=== PATIENT | female | born 1990 | race African-American/Black ===

== ENCOUNTER 2017-07-20 07:44 | Emergency (ER) | payer OTHER ==
[~2017-07-20] VITALS: Ht 162.6 cm; Wt 99.8 kg
[~2017-07-20 07:44] MED LIST: ACYCLOVIR 200200 MG PO; ACYCLOVIR 400400 MG PO; AMOXICILLIN875 MG PO; ANUSOL-HC25 MG RECTAL; COLACE 100 MG100 MG PO; FLEXERIL PO; FLONASE 0.05%50 MCG NASAL; IBUPROFEN 600600 M1 PO; IBUPROFEN 800800 MG PO; NAPROSYN500 MG PO; NOHOMEMEDICATIONS; NORCO 5-325 TA1 EACH PO; ULTRAM 50MG TAB50 MG PO; VICODIN 5-5001 EACH PO
[2017-07-20 07:59] VITALS: BP 140/90
[2017-07-20] MEDS ORDERED: HYZAAR 100-12.1 EACH PO (08:02)
[2017-07-20 08:57] LABS: URINE BILIRUBIN NEGATIVE (Negative); URINE BLOOD 2+ (Negative); URINE CLARITY CLEAR; URINE COLOR YELLOW; URINE GLUCOSE-RANDOM* NEGATIVE (Negative); URINE KETONES NEGATIVE (Negative); URINE LEUKOCYTES 1+ (Negative); URINE NITRITE NEGATIVE (Negative); URINE PROTEIN (DIPSTICK) NEGATIVE (Negative); URINE SPECIFIC GRAVITY >= 1.030 (1.005-1.035); URINE UROBILINOGEN 0.2 E.U./dl (0.2-1.0)
[2017-07-20 09:41] LABS: CASTS None Seen /LPF (None Seen); CRYSTALS None Seen /LPF (None Seen); SQUAMOUS >10 Many /LPF (0-3); URINE RBC 3-10 Few /HPF (0-2); URINE WBC 6-15 Few /HPF (0-5)
[2017-07-20 09:44] LABS: BACTERIA 1-9 Few /HPF (None Seen)
[2017-07-20 09:45] LABS: URIC ACID CRYSTALS 0-3 Few /LPF (None Seen)
[2017-07-20] MEDS ORDERED: CIPROFLOXACIN500 M1 PO (09:49)
[2017-07-21 13:09] LABS: NEISSERIA GONORRHEA-PCR Negative (Negative)
== END 2017-07-20 09:50 | disposition home or self-care (01) ==
LOC: ER 07:44
PROVIDERS: Emergency Medicine
DX: N39.0 Urinary tract infection, site not specified (principal); G43.909 Migraine, unspecified, not intractable, without status migrainosus

== ENCOUNTER 2017-10-03 21:50 | Emergency (ER) | payer OTHER ==
[~2017-10-03] VITALS: Ht 165.1 cm; Wt 98.0 kg
[~2017-10-03 21:50] MED LIST changes: +CIPROFLOXACIN500 M1 PO; +HYZAAR 100-12.1 EACH PO
[2017-10-03 21:55] VITALS: BP 132/90
[2017-10-03] MEDS ORDERED: NOHOMEMEDICATIONS (22:11)
[2017-10-03] MEDS ORDERED: DIFLUCAN150 MG PO (22:20)
[2017-10-03] MEDS ORDERED: ACYCLOVIR 800800 MG PO (22:20)
== END 2017-10-03 22:37 | disposition home or self-care (01) ==
LOC: ER 21:50
DX: A60.00 Herpesviral infection of urogenital system, unspecified (principal); G43.909 Migraine, unspecified, not intractable, without status migrainosus; Z90.10 Acquired absence of unspecified breast and nipple

== ENCOUNTER 2018-07-08 08:05 | Emergency (ER) | payer OTHER ==
[~2018-07-08] VITALS: Ht 162.6 cm; Wt 105.7 kg
[~2018-07-08 08:05] MED LIST changes: +ACYCLOVIR 800800 MG PO; +DIFLUCAN150 MG PO
[2018-07-08 08:14] VITALS: BP 136/85
[2018-07-08] MEDS ORDERED: ZOFRAN ODT4 MG PO ×2 (09:04→09:08)
== END 2018-07-08 09:02 | disposition home or self-care (01) ==
LOC: ER 08:05
DX: N76.0 Acute vaginitis (principal); G43.909 Migraine, unspecified, not intractable, without status migrainosus; Z90.10 Acquired absence of unspecified breast and nipple

== ENCOUNTER 2020-06-17 09:12 | Emergency (ER) | payer OTHER ==
[~2020-06-17] VITALS: Ht 157.5 cm; Wt 65.8 kg
[~2020-06-17 09:12] MED LIST changes: +ZOFRAN ODT4 MG PO
[2020-06-17 10:01] LABS: ABSOLUTE NEUTROPHILS 3.3 thou/uL (1.4-8.2); EOSINOPHILS 2.9 % (0.0-3.0); HEMATOCRIT 36.3 % (37.0-47.0); HEMOGLOBIN 11.6 gm/dL (12.0-15.0); MCH 26.4 pg (26.0-34.0); MCHC 31.9 g/dL (28.0-37.0); MCV 82.9 fL (80.0-100.0); POLYS 54.1 % (36.0-66.0); RBC 4.38 mil/uL (4.20-5.00); RDW 13.9 % (10.5-14.5); WBC 6.2 thou/uL (4.0-11.0)
[2020-06-17 10:03] LABS: ANION GAP 12 mmol/L (7-16); BUN 13 mg/dL (7-18); CALCIUM 9.1 mg/dL (8.5-10.1); CHLORIDE 105 mmol/L (98-107); CO2 25 mmol/L (21-32); CREATININE 0.8 mg/dL (0.6-1.0); GLUCOSE 77 mg/dL (74-106); SODIUM 142 mmol/L (136-145)
[2020-06-17 10:09] LABS: ALBUMIN 3.8 g/dL (3.4-5.0); DIRECT BILIRUBIN < 0.1 mg/dL (<0.1-0.2); SGOT 23 U/L (15-37); SGPT 13 U/L (30-65); TOTAL BILIRUBIN 0.8 mg/dL (0.2-1.0); TOTAL PROTEIN 7.8 g/dL (6.4-8.2)
[2020-06-17 10:35] LABS: LARGE PLATELETS FEW; PLATELET COUNT 253 thou/uL (150-400)
[2020-06-17 10:44] LABS: URINE BILIRUBIN NEGATIVE (Negative); URINE BLOOD NEGATIVE (Negative); URINE CLARITY CLEAR; URINE COLOR YELLOW; URINE GLUCOSE-RANDOM* NEGATIVE (Negative); URINE KETONES NEGATIVE (Negative); URINE LEUKOCYTES-REFLEX NEGATIVE (Negative); URINE NITRITE-REFLEX NEGATIVE (Negative); URINE PROTEIN (DIPSTICK) NEGATIVE (Negative); URINE SPECIFIC GRAVITY <= 1.005 (1.005-1.035); URINE UROBILINOGEN 0.2 E.U./dl (0.2-1.0)
[2020-06-17 10:55] LABS: AMP/METHAMP Negative (Negative); BARBITURATES Negative (Negative); BENZODIAZEPINES Negative (Negative); COCAINE Negative (Negative); METHADONE Negative (Negative); OPIATES Negative (Negative); PCP Negative (Negative)
--- NOTE | 2020-06-17 11:07 | EKG ---
[address] [place] [place] [employer] [address] ELECTROCARDIOGRAM REPORT Name: WALKER STAPLES Room #: [facility] [id number] Admission: 06/17/20 Attend Phys: Discharge: Date of : 88 Report #: [id number] [facility] ED Test Date: 2020-06-17 Test Time: 09:14:24 Pat Name: WALKER STAPLES Department: Room: Gender: F Director Of Physician Practices: SYLVESTER : 1990 Requested By: Guera Alicea Order Number: [id number] MD: Óscar Gusman Measurements Intervals [place] Rate: 84 P: 75 MI: 147 QRS: 15 QRSD: 94 T: -13 QT: 349 QTc: 413 Interpretive Statements Sinus rhythm Borderline T abnormalities, inferior leads Baseline wander in lead(s) V2 Compared to ECG 02/03/2012 18:37:57 Electronically Signed On 06-17-2020 11:06:55 CDT by Óscar Gusman [email or web address] <ELECTRONICALLY SIGNED> By: Óscar Gusman MD 06/17/20 1106 0914 3 Óscar Gusman MD /PRECIOUS
[2020-06-17 14:15] VITALS: BP 136/91
== END 2020-06-17 14:16 | disposition home or self-care (01) ==
LOC: ER 09:12
PROVIDERS: Emergency Medicine
DX: R41.82 Altered mental status, unspecified (principal); R55 Syncope and collapse; G43.909 Migraine, unspecified, not intractable, without status migrainosus

== ENCOUNTER → 2020-06-27 | Outpatient (CLI) | payer OTHER | LOC: SJCVCIMAG 08:47 | PROVIDERS: ATTEND Internal Medicine Cardiovascular Disease | DX: I25.3 Aneurysm of heart (principal); R55 Syncope and collapse; F17.210 Nicotine dependence, cigarettes, uncomplicated; F15.90 Other stimulant use, unspecified, uncomplicated; Z79.899 Other long term (current) drug therapy ==

== ENCOUNTER 2020-12-18 20:30 | Emergency (ER) | payer OTHER ==
[~2020-12-18] VITALS: Ht 162.6 cm; Wt 63.5 kg
[2020-12-18 20:34] VITALS: BP 127/74
[2020-12-18] MEDS ORDERED: TESSALON PERLE100 MG PO (22:10)
[2020-12-18] MEDS ORDERED: AMOXICILLIN500 M1 PO (22:10)
[2020-12-18] MEDS ORDERED: ONDANSETRON HCL4 M2 PO (22:10)
== END 2020-12-18 22:00 | disposition home or self-care (01) ==
LOC: ER 20:30
PROVIDERS: Emergency Medicine
DX: M79.10 Myalgia, unspecified site (principal); Z20.822 Contact with and (suspected) exposure to COVID-19; G43.909 Migraine, unspecified, not intractable, without status migrainosus; F12.90 Cannabis use, unspecified, uncomplicated; Z86.16 Personal history of COVID-19; Z98.890 Other specified postprocedural states